=== PATIENT | female | born 2000 | race Caucasian/White ===

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

== ENCOUNTER 2024-07-16 18:18 | Emergency (ER) | payer BC, MEDICAID ==
[~2024-07-16] VITALS: Ht 175.3 cm; Wt 104.5 kg
[2024-07-16] MEDS ORDERED: SERTRALINE50 MG PO (18:26)
[2024-07-16] MEDS ORDERED: METOPROLOL SUC100 M1 PO (18:26)
[2024-07-16 20:01] VITALS: BP 144/93
== END 2024-07-16 20:04 | disposition home or self-care (01) ==
LOC: ED 18:18
DX: O20.9 Hemorrhage in early pregnancy, unspecified (principal); Z3A.08 8 weeks gestation of pregnancy